=== PATIENT | male | born 1995 | race Caucasian/White ===

== ENCOUNTER 2025-02-08 10:30 | Emergency (ER) | payer OTHER, SELFPAY ==
[2025-02-08] VITALS (10 sets, daily range): BP systolic 95–118; BP diastolic 66–76; PULSE 53–87; RESP 17–20; TEMP 36.7; O2SAT 98–100
--- NOTE | ~2025-02-08 | CT_ITS ---
EXAMINATION: CT BRAIN W/O DATE: 02/08/2025 11:29 INDICATION: Seizures TECHNIQUE: Computed tomography (CT) of the head was performed without intravenous contrast. The dose- length product was 681.00 mGy-cm. Automated exposure control and iterative reconstruction technique were employed. COMPARISON: No prior studies for comparison. FINDINGS: Normal brain parenchymal volume for age. Normal hare-white differentiation. No acute intrac ranial hemorrhage, infarction, mass or mass effect. No ventriculomegaly or midline shift. Midline sagittal images demonstrate a normal corpus callosum, c raniovertebral junction and sella turcica. Basilar cisterns are patent. Paranasal sinuses and mastoids are pneumatized. No depressed skull fractures. IMPRESSION: 1. No acute intracranial abnormality. Reviewed, dictated and finalized at location B.
--- NOTE | ~2025-02-08 | US_ITS ---
US abdomen limited DATE: 02/08/2025 14:00 INDICATION: Abdominal pain TECHNIQUE: Real-time and color flow imaging COMPARISON: 02/08/2025 CT abdomen pelvis FINDINGS: There is minimal pericholecystic fluid. Borderline color wall thickness.: No gallstones are noted. Acalculous cholecystitis is not excluded. Clinical correlation is advised. Radionuclide hepat obiliary scan may be helpful to exclude acute cholecystitis if clinically appropriate. Common bile duct measures 3.9 mm, normal. The liver and pancreas and right kidney are unremarkable. IMPRESSION: Borderline thickening of the gallbladder wall and mild pericholecystic fluid. No gallston es are noted. If there is clinical concern for acalculous cholecystitis, consider radionuclide hepatobiliary scan Reviewed, dictated and finalized at Location A. Reviewed, dictated and finalized at location A. IMPRESSION: Borderline thickening of the gallbladder wall and mild pericholecys tic fluid. No gallstones are noted. If there is clinical concern for acalculous cholecystitis, consider radionuclid e hepatobiliary scan
--- NOTE | ~2025-02-08 | CT_ITS ---
EXAMINATION: CT abdomen pelvis w con DATE: 02/08/2025 12:24 INDICATION: Abdomen pain TECHNIQUE: Computed tomography (CT) of the abdomen and pelvis was performed with 100 cc Omnipaque 350 intravenous contrast. The dose-length product was 254.77 mGy-cm. Automated exposure control and iter ative reconstruction technique were employed. COMPARISON: None. FINDINGS: Lung bases are unremarkable. Heart size normal. No significant pleural or pericardial effus ion. There is periportal edema. There is possible trace pericholecystic fluid. The liver is otherwise unremarkable. The spleen, pancreas, adrenal glands and kidneys are unremarkable. Nonobstructive maritza l gas pattern. There is dependent atelectasis. No acute osseous abnormality. IMPRESSION: 1. Contracted gallbladder with possible pericholecystic fluid. No definite gallstones. There is mild periportal edema. Consider correlation with limited abdominal ultrasound. Reviewed, dictated and finalized at location B. IMPRESSION: 1. Contracted gallbladder with possible pericholecystic fluid. No definite gall stones. There is mild periportal edema. Consider correlation with limited abdom inal ultrasound.
--- OUTSIDE RECORDS SUMMARY | 2025-02-08 10:34 | XMS_ITS | Clinical Summary ---
Author Organization [facility] [employer] Address [address] [place] [address] Care Team Providers Care Cloth Reeler Name Role Phone Jacinta Webb MD Unavailable Source Comments [facility] [employer],non-owned Affiliates and Associated Physician Practices is amultiple site organization consisting of ambulatory clinics and hospital sitesin [place], [place], [place] and [place]. This disclosure is being madepursuant to the Care Everywhere program and may not contain all information available regarding this patient. Last updated 18.[facility] [employer] Allergies No known active allergies Medications * Be aware that medications may not be up to date on this document. Alwaysverify current medications with the patient. Medication Sig Dispensed Refills Start Date End Date Status adapalene-benzoyl peroxide (EPIDUO) 0.1-2.5 % gel Apply to affected area at bedtime. 1 Tube 3 01/28/2011 Active Immunizations Name Administration Dates Next Due DPT 11/17/1997, 5,04/06/1994,02/07/1994,12/15/18 94 HEP A PEDS 2 DOSE 04/07/2008,06/20/2007 HEP B VACCINE, PED/ADOL 08/08/1994,1993, HIB BOOSTER 01/18/1995,04/06/1994,02/07/1994 ,1993 MMR 11/17/1997,01/18/1995 POLIO OPV 01/12/1999, 7,05/17/1995,02/07/1994,12/15/18 94 PPD 07/12/1999 TDAP (7yrs+) 06/20/2007 VARICELLA 04/07/2008,01/12/1999 Family History Medical History Relation Name Comments Diabetes Father Hypertension Father Anemia Mother Rashes/Skin Problems Mother Relation Name Status Comments Father Mother Social History Tobacco Use Types Packs/Day Years Used Date Smoking Tobacco: Never Assessed Sex and Gender Information Value Date Recorded Sex Assigned at Not on file Gender Identity Not on file Sexual Orientation Not on file Last Filed Vital Signs Vital Sign Reading Time Taken Comments Blood Pressure - - Pulse - - Temperature 37.4 C (99.4 F) 10/27/2011 3:48 PM SPECIAL EFFECTS TECHNICIAN Respiratory Rate - - Oxygen Saturation - - Inhaled Oxygen Concentration - - Weight 67 kg (147 lb 12.8 oz) 10/27/2011 3:48 PM SPECIAL EFFECTS TECHNICIAN Height - - Body Mass Index - - Plan of Treatment Health Maintenance Due Date Last Done Comments HIV SCREENING 2008 HEPATITIS C SCREENING 10/14/2011 DTAP/TDAP/TD VACCINES (7 - Td or Tdap) 06/20/2017 06/20/2007, 11/17/1997, 05/17/1995, Additional history exists COVID-19 VACCINE ( season) 2024 INFLUENZA VACCINE (#1) 2024 DEPRESSION SCREENING 11/20/2024 ZOSTER VACCINE (1 of 2) 2043 HEPATITIS B VACCINE Completed 08/08/1994, 1993, 1993 HIB VACCINE Completed 01/18/1995, 03/20, 02/07/1994, Additional history exists HPV VACCINE Aged Out No longer eligi ble based on patient's age to complete this topic MENINGOCOCCAL (Group B) VACCINE SHARED DECISION-MAKING Aged Out No longer eligible based on patient's age to complete this topic MENINGOCOCCAL GROUPS A/C/Y/W VACCINE Aged Out No longer eligible based on patient's age to complete this topic PNEUMOCOCCAL VACCINE Aged Out No long er eligible based on patient's age to complete this topic Care Teams Cloth Reeler Relationship Specialty Start Date End Date Jacinta Webb MD PCP - Pediatrics 12/17/09
--- NOTE | 2025-02-08 10:37 | ECG_ITS ---
Test Date: 2025-02-08 10:49:51 Measurements Intervals [place] Rate: 51 P: 57 CA: 187 QRS: 62 QRSD: 104 T: 50 QT: 446 QTc: 414 Interpretive Statements SINUS BRADYCARDIA INCOMPLETE RIGHT BUNDLE BRANCH BLOCK No previous ECG available for comparison Electronically Signed On 02-08-2025 17:37:53 CDT by Marcel David M.D.
[2025-02-08 10:49] LABS: Basophils Absolute Auto 0.1 K/mm3 (0.0-0.1); Basophils Percent Auto 0.7 % (0.2-1.2); Eosinophils Absolute Auto 0.5 K/mm3 (0-0.3); Eosinophils Percent Auto 4.2 % (0-4.4); Hematocrit 41.9 % (42.0-52.0); Immature Granulocyte Absolute 0.05 K/mm3 (0.00-0.031); Immature Granulocyte Percent A 0.4 % (0-0.5); Lymphocytes Absolute Auto 5.96 K/mm3 (0.9-3.2); Lymphocytes Percent Auto 48.9 % (18.3-44.2); Mean Corpuscular HGB Conc 33.4 g/dl (32-36); Mean Corpuscular Hemoglobin 29.5 pg (26-34); Mean Corpuscular Volume 88.4 fl (80-100); Mean Platelet Volume 10.5 fl (7.4-10.4); Monocytes Absolute Auto 0.8 K/mm3 (0.1-0.6); Monocytes Percent Auto 6.7 % (2.6-8.5); Neutrophils Absolute Auto 4.8 K/mm3 (1.3-6.7); Neutrophils Percent Auto 39.1 % (45.5-73.1); Platelet Count Result 194 k/mm3 (150-375); Red Blood Count 4.74 M/mm3 (4.6-6.20); Red Cell Distribution Width 13.1 % (11.5-14.5); White Blood Count 12.2 K/mm3 (4.5-10.0)
--- NOTE | 2025-02-08 10:53 | ED_ITS ---
HPI - General Adult General Chief complaint: Seizure Stated complaint: 2x seizures this morning Time Seen by Provider: 02/08/25 10:37 History of Present Illness HPI narrative: 29-year-old male presents emergency department for evaluation after having multiple syncopal episodes this morning. Patient states he did develop some abdominal cramping. Patient was sitting on the toilet felt lightheaded and dizzy and did fall to the ground. Patient and had 2 episodes near syncope. Patient has no prior seizure history. Patient does have history of disability due to back pain from the . Patient does use medical marijuana did use medical marijuana this morning. Related Data Home Medications ?Medication ?Instructions ?Recorded ?Confirmed ?Last Taken ?Type No Home Medications 02/08/25 02/08/25 Unknown History Allergies Allergy/AdvReac Type Severity Reaction Status Date / Time No Known Allergies Allergy Verified 02/08/25 11:31 Review of Systems 2 Review of Systems: All systems reviewed & are unremarkable except as noted in HPI and below Exam 2 Narrative: APPEARANCE: Cachectic and ill-appearing HEAD: normocephalic, atraumatic. EYES: PERRLA/EOMI, conjunctivae clear. NOSE: Normal no drainage EARS:TMS clear with good light reflex. THROAT: Pharynx clear, no exudate. NECK: Supple. No adenopathy, no masses. RESPIRATORY: Airway patent, respirations nonlabored. Clear to auscultation bilaterally, no rales, rhonchi, wheezing. CARDIOVASCULAR: Regular rate and rhythm without murmurs rubs or gallops. ABDOMINAL: Soft, nontender, nondistended, normal bowel sounds MUSCULOSKELETAL: Moves all extremities. Strength/ROM intact, No edema, No calf tenderness. NEURO: Alert. Cranial nerves II through XII intact. Grossly intact SKIN: Warm, dry. Normal Color Course Vital Signs Vital signs: Vital Signs Temperature 98.0 F 02/08/25 10:36 Pulse Rate 58 L 02/08/25 10:36 Respiratory Rate 20 02/08/25 10:36 Blood Pressure 106/70 02/08/25 10:36 Pulse Oximetry 100 02/08/25 10:36 Oxygen Delivery Room Air 02/08/25 10:36 Temperature 98.0 F 02/08/25 10:36 Pulse Rate 61 02/08/25 16:29 Respiratory Rate 18 02/08/25 16:29 Blood Pressure 109/75 02/08/25 16:29 Pulse Oximetry 98 02/08/25 16:29 Oxygen Delivery Room Air 02/08/25 10:36 Medical Decision Making [facility] Narrative Medical decision making narrative: 29-year-old male present to the emergency department for evaluation for to syncopal episodes. Patient is currently afebrile but does have a leukocytosis of 12.2 and a stable hemoglobin of 14.0. Patient's INR is 1.0. No significant acute abnormalities on the patient's CMP. No elevation in T bili AST ALT or alk-phos. Patient's TSH was elevated but patient has normal T3 and T4. UA was negative for infection. Patient was positive for cannabinoids but otherwise negative on the drug strain. Head CT showed no acute intracranial abnormality. CT abdomen pelvis showed contracted gallbladder with possible pericholecystic fluid. No definite gallstones. Ultrasound was recommended. Ultrasound showed borderline thickening of the gallbladder wall and mild pericholecystic fluid. No gallstones are noted. Low concern for any gallbladder pathology at this time. Patient family updated the results of the workup. Patient was able to ambulate at baseline with no lightheaded dizziness. Patient reports his abdominal pain is improved. Patient was treated with 2 L lactated Ringer's and has been making adequate urine production. Differential Diagnosis Differential Diagnosis: COVID, RSV, influenza, dehydration, orthostatic hypotension, cholecystitis, colitis, diverticulitis Vital Signs Vital Signs: Vital Signs Temperature 98.0 F 02/08/25 10:36 Pulse Rate 58 L 02/08/25 10:36 Respiratory Rate 20 02/08/25 10:36 Blood Pressure 106/70 02/08/25 10:36 Pulse Oximetry 100 02/08/25 10:36 Oxygen Delivery Room Air 02/08/25 10:36 Temperature 98.0 F 02/08/25 10:36 Pulse Rate 61 02/08/25 16:29 Respiratory Rate 18 02/08/25 16:29 Blood Pressure 109/75 02/08/25 16:29 Pulse Oximetry 98 02/08/25 16:29 Oxygen Delivery Room Air 02/08/25 10:36 Lab Data Lab results reviewed: Yes I reviewed the patient's lab results. 02/08/25 10:42 02/08/25 10:42 Labs: Lab Results 02/08/25 02/08/25 02/08/25 Range/Units 10:42 12:08 13:11 WBC 12.2 H (4.5-10.0) K/mm3 RBC 4.74 (4.6-6.20) M/mm3 Hgb 14.0 (14.0-18.0) g/dL Hct 41.9 L (42.0-52.0) % MCV 88.4 (80-100) fl MCH 29.5 (26-34) pg MCHC 33.4 (32-36) g/dl RDW 13.1 (11.5-14.5) % Plt Count 194 (150-375) k/mm3 MPV 10.5 H (7.4-10.4) fl Immature Gran % (Auto) 0.4 (0-0.5) % Neut % (Auto) 39.1 L (45.5-73.1) % Lymph % (Auto) 48.9 H (18.3-44.2) % [place] % (Auto) 6.7 (2.6-8.5) % Eos % (Auto) 4.2 (0-4.4) % Baso % (Auto) 0.7 (0.2-1.2) % Lymph # (Auto) 5.96 H (0.9-3.2) K/mm3 [place] # (Auto) 0.8 H (0.1-0.6) K/mm3 Eos # (Auto) 0.5 H (0-0.3) K/mm3 Baso # (Auto) 0.1 (0.0-0.1) K/mm3 Abs Immat Gran (auto) 0.05 H (0.00-0.031) K/mm3 Absolute Neuts (auto) 4.8 (1.3-6.7) K/mm3 Absolute Nucleated RBC 0.000 (0.0-0.012) K/mm3 Nucleated RBC % 0.0 (0.0-0.2) % PT 13.4 (11.1-14.7) Seconds INR 1.0 APTT 23.1 (22.3-36.8) Seconds Sodium 140 (137-145) mmol/L Potassium 3.2 L (3.4-5.0) mmol/L Chloride 104 (98-107) mmol/L Carbon Dioxide 25 (22-30) mmol/L Anion Gap 11 (4-12) mmol/L BUN 16 (9-20) mg/dL Creatinine 0.93 (0.7-1.3) mg/dL Estim Creat Clear Calc 101 ml/min Estimated GFR > 60 (59 - ) Glucose 131 H (65-110) mg/dL Lactic Acid 2.1 H 1.3 (0.7-2.0) mmol/L Calcium 9.0 (8.4-10.2) mg/dL Magnesium 1.8 (1.6-2.3) mg/dL Total Bilirubin 0.5 (0.2-1.3) mg/dL AST 27 (17-59) U/L ALT 24 (6-50) U/L Alkaline Phosphatase 66 (38-126) U/L Total Protein 7.0 (6.3-8.2) g/dL Albumin 4.5 (3.5-5.1) g/dL TSH (Reflex) 7.150 H (0.465-4.68) uIU/mL Free T4 1.11 (0.78-2.19) ng/dL Total T3 1.32 (0.97-1.69) NG/ML Urine Color Yellow (Yellow) Urine Appearance Cloudy H (Clear) Urine pH 5.5 (5.0-9.0) Ur Specific [place] 1.017 (1.001-1.035) Urine Protein Negative (Negative) mg/dL Urine Glucose (UA) Negative (Negative) mg/dL Urine Ketones Negative (Negative) mg/dL Ur Blood (Man) Negative (Negative) Urine Nitrate Negative (Negative) Urine Bilirubin Negative (Negative) Urine Urobilinogen 0.2 (<2.0) mg/dL Leukocyte Esterase Rfl Negative (Negative) PEEWEE/UL Urine RBC 0-2 (0-2) /hpf Urine WBC 0-5 (0-3) /hpf Ur Squamous Epith Cells None seen (Few) /hpf Urine Bacteria None seen /hpf Urine Casts 3-5 Urine Opiates Screen Negative (Negative) Urine Methadone Screen Negative (Negative) Ur Barbiturates Screen Negative (Negative) Ur Phencyclidine Scrn Negative (Negative) Ur Amphetamine Screen Negative (Negative) U Benzodiazepines Scrn Negative (Negative) Urine Cocaine Screen Negative (Negative) U Cannabinoids Screen Positive A (Negative) Ethyl Alcohol < 10 (<10) mg/dL Imaging Data Radiologist's impression: Impressions Head CT 02/08/25 11:30 IMPRESSION: 1. No acute intracranial abnormality. Abdomen/Pelvis CT 02/08/25 12:45 IMPRESSION: 1. Contracted gallbladder with possible pericholecystic fluid. No definite gallstones. There is mild periportal edema. Consider correlation with limited abdominal ultrasound. Abdomen Ultrasound 02/08/25 15:19 IMPRESSION: Borderline thickening of the gallbladder wall and mild pericholecystic fluid. No gallstones are noted. If there is clinical concern for acalculous cholecystitis, consider radionuclide hepatobiliary scan Discharge Plan Discharge Clinical Impression: Syncope and collapse Patient Disposition: Home, Self-Care Condition: Stable Instructions: Antibiotic Form, Clear Liquid Diet (ED), Syncope (DC) Additional Instructions: Drink plenty of fluids. If you are having a decreased appetite then stick with a clear liquid diet. Have close follow-up with your primary care physician. If you have any worsening symptoms then please call or return to the emergency department. Patient Language: Pashto Prescriptions: No Action No Home Medications Follow-up/Referrals: PHYSICIAN NOT ON STAFF,NONSTAFF [Primary Care Provider] -
[2025-02-08] MEDS: LACTATED RINGERS 2,000 ML 999 ML IV CONT (10:56)
[2025-02-08 10:59] LABS: Alanine Aminotransferase 24 U/L (6-50); Albumin Level 4.5 g/dL (3.5-5.1); Alkaline Phosphatase 66 U/L (38-126); Anion Gap 11 mmol/L (4-12); Aspartate Amino Transferase 27 U/L (17-59); Bilirubin,Total 0.5 mg/dL (0.2-1.3); Blood Urea Nitrogen 16 mg/dL (9-20); Carbon Dioxide 25 mmol/L (22-30); Chloride 104 mmol/L (98-107); Estimated CRCL calculation 101 ml/min; Estimated Glomerular Filt Rate > 60; Ethanol < 10 mg/dL (<10); Glucose 131 mg/dL (65-110); Lactic Acid Reflex 2.1 mmol/L (0.7-2.0); Magnesium 1.8 mg/dL (1.6-2.3); Potassium 3.2 mmol/L (3.4-5.0); Prothrombin Time 13.4 Seconds (11.1-14.7); Sodium 140 mmol/L (137-145)
[2025-02-08 11:00] LABS: Partial Thromboplastin Time 23.1 Seconds (22.3-36.8)
--- OUTSIDE RECORDS SUMMARY | 2025-02-08 11:05 | XMS_ITS | Clinical Summary ---
Author Organization [facility] [employer] Address [address] [place] [address] Care Team Providers Care Mailing Machine Operator Name Role Phone Jacinta Webb MD Unavailable [phone] Source Comments [facility],non-owned Affiliates and Associated Physician Practices is amultiple site organization consisting of ambulatory clinics and hospital sitesin [place], [place], [place] and [place]. This disclosure is being madepursuant to the Care Everywhere program and may not contain all information available regarding this patient. 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
--- OUTSIDE RECORDS SUMMARY | 2025-02-08 11:05 | XMS_ITS | Encounter Summary ---
Author Name [facility] Address [address] [place] [address] Care Team Providers Care Oil Pipe Inspector Name Role Phone VITALIY GILBERT Primary Care Provider SIMONE Chavez Primary Care Provider Yumi ventura Selected Encounter This section includes the information on record at [place] for the Encounter. Date/Time Encounter Type Encounter Description Reason Provider Source Feb 21, 2024 09:00 AM SUICD BASED CLN [place] [facility] INDIV ICD-10-CM F54 Psych & behavrl factors assoc w disord or dis classd elswhr [facility] Encounter Template Text not used by [place] Assessments - Encounter Diagnoses This section includes the primary and secondary diagnoses documented for the Encounter. Date/Time Primary/Secondary Diagnosis Diagnosis Name Provider Source Feb 21, 2024 09:50 AM PRIMARY Psych & behavrl factors assoc w disord or dis classd elswhr [facility] Feb 21, 2024 09:50 AM SECONDARY Chronic pain syndrome [facility] Feb 21, 2024 09:50 AM SECONDARY Major depressive disorder, recurrent, mild [facility]JENNA [facility] Plan of Treatment: Future Appointments (+ 6 months) and Future Tests (+/- 45 days) The Plan of Treatment section includes future care activities for the patient from all [place] treatmentfacilities. This section includes future appointments and future orders which are active, pending or scheduled. Future Appointments This section includes appointments that were scheduled to occur 6 months from the date of the Encounter, up to a maximum of 20 appointments. The data comes from all [place] treatment facilities. Appointment Date/Time Appointment Type Appointme nt Facility Name Mar 06, 2024 09:00 AM AMBULATORY - MEDICINE [facility] Encounter Notes: All associated encounter notes This section contains the clinical notes associated to the Encounter. Date/Time Encounter Note(s) Provider Source Feb 21, 2024 08:56 AM PSYCHOLOGY INITIAL EVALUATION NOTE: LOCAL TITLE: PRIMARY CARE PSYCHOLOGY INITIAL NOTE [facility] STANDARD TITLE: PSYCHOLOGY INITIAL EVALUATION NOTE DATE OF NOTE: FEB 21, 2024@08:56 ENTRY DATE: FEB 21, 2024@08:56:50 AUTHOR: CHENG PEARSON COSIGNER: URGENCY: STATUS: COMPLETED PRIMARY CARE-[facility]AL HEALTH INTEGRATION ([facility]) FUNCTIONAL ASSESSMENT NAME: AMANDA SERRA DATE OF : Sep DIAGNOSIS BEING TREATED: Psychological and Behavioral Factors Associated with Disorders or Diseases classified elsewhere, chronic pain; r/o MDD, SC chronic adjustment disorder CPT Code: 47387 SERVICE CONNECTION: Service Connected: 100% Rated Disabilities: LIMITED MOTION OF ARM (20% SC) INTERVERTEBRAL DISC SYNDROME (30% SC) LIMITED FLEXION OF THIGH (10% SC) 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 PROCEDURES: Brief Behavioral Health Assessment. Informed about *limits to confidentiality - charting/consultation with medical team - actions for safety of self/dependents *duration and purpose of this appointment as well as the potential risk, benefits, and complications of participating in treatment. The [place] expressed understanding and consented to participate in services. Clinical Reminders are Due: No Urgency of need for care: [x] Routine [ ] Stat Appropriate setting for care: [x] Outpatient [ ] ER REASON FOR REFERRAL: referred to Primary Care Psychology for a brief behavioral health assessment to address issues related to: request for svcs- some depressed mood although screen negative Presenting Problem (Detail symptoms): [place] reporting: -depression, can't get anything done with medical conditions, caring for kids & family everything is falling behind -feel sick all the time -back pain & migraines get in way of completing tasks -guilt re: not getting things done for family Problem History (Duration/Frequency/Intensi ty): -Duration: ~1 yr; back pain worsening, kids more handful -Frequency: daily -Intensity: 7-8/10 Treatment History for Problem: -Psychotherapy: in childhood for family counseling -Medication: denied Factors that Improve/Exacerbate Problem, if applicable: -Improves: when I feel better, more finances -Exacerbates: financial stressors How Presenting Problem Impacts the Following: -Sleep: poor; pain gets in way; thoughts race -Work/School: unemployed, not looking for work currently, also unemployed, not looking for work -Relationships/Interpersona l: strong social supports; & 2 kids (6yo & 3yo); -Leisure/Recreation: time with kids; milad with friends, time with family -Physical/Medical/Pain: see above -Social media usage: Denied -ETOH/Illicit Substance Use/Tobacco/Caffeine: ETOH: denied Tobacco: denied Drugs: MJ for sleep, manage migraine and pain Caffeine: coffee 8-16oz Symptom Measurements: Informed consent for [employer]: Sent self-report measures to vet via text or email through [employer] application. Discussed measurement-based care (MBC) and self-monitoring with the [place]. Oriented the [place] to completing MBC through [employer]. Reminded the [place] that the responses are not reviewed in real time and encouraged them to contact this provider or the care team directly with any concerns or questions. Reviewed potential risks (e.g., privacy concerns)and benefits (e.g., ease and convenience). Reviewed clear guidelines on what actions the [place] should take if experiencing an acute MH crisis (i.e., contact the Veterans Crisis Line (VCL), call 911, go to the nearest emergency room, etc.). [place] consents to use the of the [employer] application consistent with the agreed upon parameters (e.g., not to be used for urgent communications). Symptom Measurements: sent via [employer] but not completed at time of note writing. Will add if/when completes. PHQ9 (Depression): (RANGES: 0-4 Minimal; 5-9 Mild; 10-14 Moderate; 15-19 Moderately severe; 20-27 Severe) GAD7 (Anxiety): (RANGES: 0-4 Minimal; 5-9 Mild; 10-14 Moderate; 15-21 Severe) LETHALITY ASSESSMENT -Are you having thoughts of harming yourself or others? No -Any history of suicide attempts: No CSSRS: FEB 21, 2024[x]negative [ ]positive -Risk Factors: NA -Protective Factors: help-seeking, future-oriented, strong supports, fatherhood, , absence of SI, intent, or plan, no history of SI, suicide attempts, or self-harm behavior. -Risk level: [x]LOW [ ]MODERATE [ ]HIGH -CLINICAL JUDGMENT AND DISPOSITION: In consideration of relevant risk and protective factors, the did NOT appear to be at imminent risk for suicide or homicide at this time and IS sustainable at the current level of care. -Comments: -Any history of violence: No -Any current HI or aggressive urges: -Any current concerns related to abuse, neglect, exploitation, and interpersonal violence: MENTAL STATUS: [x] Within normal limits [x] Other: blunted affect ASSIST PHASE: [place] was provided with tools for self-management including: [x] Handouts on: -IPR brochure -Anxiety, provided by [employer] website -Chronic pain, provided by [employer] website -Depression, provided by [employer] website [x] Education regarding: -Impact of poor sleep on stress and mood -Characteristics of depression, eliciting examples from 's own life -Characteristics of anxiety, eliciting examples from 's own life -Discussed biopsychosocial model of chronic pain [x] Other: -Provided empathy, reflective listening, and supportive therapy throughout session. -Encouraged continued use of known coping skills. -Normalized current concerns, thoughts, and emotions. -Focused on assets/strengths. GOALS FOR [place]: The following goals were developed using shared decision-making with input by the [place]: -Behavioral activation ( do what I need to do ) (evidenced by MBC and self- report) IMPRESSIONS: reported symptoms aligning with depression and psychological factors r/t chronic pain. They are agreeable to engaging in [facility] at this time to work on behavioral activation. PLAN OF CARE: The following plan was developed collaboratively with the [place] and he/she provided verbal consent to participate in the treatment plan below. [x] Continue Care within [facility]. Behavioral Health Lab Monitoring 2 weeks. RTC in 2 weeks RECOMMENDATONS FOR PCP: Continue care as needed. Outcome and recommendations will be discussed with the referring provider and other relevant PACT team members as needed. EDUCATION: [place] was provided with opportunity to address any questions or concerns. The was provided with written contact information. The is aware of the Suicide Prevention Hotline number ( ) in case of crisis. If experiencing a mental health emergency, the should present to nearest emergency room or call 911 immediately. /jossue/ Jenna Lopez, PhD Psychologist, [facility] Signed: 02/21/2024 09:50 JENNA PEARSON [facility]
--- OUTSIDE RECORDS SUMMARY | 2025-02-08 11:05 | XMS_ITS | Encounter Summary ---
Author Name [facility] Address [address] [place] [address] Care Team Providers Care Manager Learning Name Role Phone VITALIY GILBERT Primary Care Provider SIMONE Chavez Primary Care Provider Yumi ventura Selected Encounter This section includes the information on record at [place] for the Encounter. Date/Time Encounter Type Encounter Description Reason Provider Source Mar 06, 2024 09:00 AM PSYTX W PT 30 MINUTES [facility] INDIV ICD-10-CM F54 Psych & behavrl factors assoc w disord or dis classd elsJENNA Magallon Stuart Encounter Template Text not used by [place] Assessments - Encounter Diagnoses This section includes the primary and secondary diagnoses documented for the Encounter. Date/Time Primary/Secondary Diagnosis Diagnosis Name Provider Source Mar 06, 2024 09:32 AM PRIMARY Psych & behavrl factors assoc w disord or dis classd elschelsear ARIA-JENNA WARNER [facility] Encounter Notes: All associated encounter notes This section contains the clinical notes associated to the Encounter. Date/Time Encounter Note(s) Provider Source Mar 06, 2024 09:07 AM PSYCHOLOGY OUTPATI ENT NOTE: LOCAL TITLE: PRIMARY CARE PSYCHOLOGY NOTE [facility] STANDARD TITLE: PSYCHOLOGY OUTPATIENT NOTE DATE OF NOTE: MAR 06, 2024@09:07 ENTRY DATE: MAR 06, 2024@09:07:22 AUTHOR: CHENG PEARSON COSIGNER: URGENCY: STATUS: COMPLETED NAME: SUKHWINDER SERRA DATE OF : Sep TIME SPENT WITH PATIENT: 30 minutes DIAGNOSIS BEING TREATED: Psychological and Behavioral Factors Associated with Disorders or Diseases classified elsewhere, chronic pain; r/o MDD, [place] chronic adjustment disorder CPT Code: 37087 NATURE OF ENCOUNTER: final visit SESSION FORMAT: [x] Video Telehealth [ ]Phone Ch[place]'s location and phone number confirmed for virtual appointment. PROCEDURES: Brief Behavioral Health Assessment. Informed about *limits to confidentiality - charting/consultation with medical team - actions for safety of self/dependents *duration and purpose of this appointment as well as the potential risk, benefits, and complications of participating in treatment. The [place] expressed understanding and consented to participate in services. SESSION NUMBER: 2 INTERVENTION/TREATMENT PROVIDED [x] [place] [x] Shared decision-making regarding goals of care [x] Supportive Psychotherapy [ ] Solution-Focused Psychotherapy [ ] Insight Oriented Psychotherapy [ ] Cognitive Behavioral Therapy Skills [ ] Acceptance and Commitment Therapy Skills [ ] Interpersonal Therapy Skills [ ] Motivational Interviewing [ ] Culture-based Interventions [ ] Health Psychology Interventions [ ] Evidence Based Psychotherapy: [ ] Psychosocial Interventions [ ] Other: Description of Interventions Provided by Therapist: -Reviewed hand outs provided last session -Reviewed priorities -Reviewed goals set at last session, discussing challenges and success and encouraged continual engagement toward goals and values. -Provided empathy, reflective listening, and supportive therapy throughout session. -Encouraged continued use of known coping skills. -Normalized current concerns, thoughts, and emotions. -Focused on assets/strengths. RELEVANT HISTORICAL DEVELOPMENTS SINCE LAST CONTACT: NOTE: Describe relevant historical developments below reported prioritizing physical interventions for chronic pain at this time, was agreeable to today being final session of [facility]. He declined IPR referral at this time. He is aware he can reconnect at anytime if possible. ASSESSMENT MEASURES USED: Symptom Measurements: sent via [employer] touch but not completed at time of note writing. Will add if/when completes. [X]Functional/Symptom Assessment: Symptom(s)/Function(s) tracked by changes in frequency, intensity or duration since last visit: SX: Sleep: no concerns stated in today's session Interest: no concerns stated in today's session Guilt: no concerns stated in today's session Energy: no concerns stated in today's session Concentration: no concerns stated in today's session Appetite: no concerns stated in today's session Psychomotor: no concerns stated in today's session Collaboratively discussed outcomes related to assessment and treatment progress and measures will continue to be monitored. MEASURABLE TREATMENT GOALS FOR THIS EPISODE OF CARE: Goals were developed with using shared decision making 1. GOAL/OBJECTIVES: reported prioritizing physical interventions over [facility] services at this time. RESPONSE TO INTERVENTIONS: Veterans participation/engagement: [x]The [place] participated actively in the current interventions. [ ]Other: The continues to consent to the current plan of care: Yes Comments: RISK ASSESSMENT: [x] NO CHANGE IN RISK FACTORS Related to Suicide or Homicide. did not report any current suicidal/homicidal ideation, plan, or intent. Ch[place] did not appear to be at imminent risk for suicide or homicide at this time and is considered sustainable at the current level of care. -CLINICAL JUDGMENT AND DISPOSITION: [x] In consideration of relevant risk and protective factors, the did NOT appear to be at imminent risk for suicide or homicide at this time and IS sustainable at the current level of care. COLLABORATIVE RECOMMENDATIONS/PLAN: Collaboratively discussed outcomes related to assessment and treatment progress. Based on this discussion: [x] agreeable to today being final session per prioritizing physical interventions at this time. He is aware he can reconnect at anytime in the future if necessary. /jossue/ Jenna Lopez, PhD Psychologist, [facility] Signed: 03/06/2024 09:33 [facility]
--- OUTSIDE RECORDS SUMMARY | 2025-02-08 11:05 | XMS_ITS | Continuity of Care Document ---
Author Name [facility] Organization [facility] Care Team Providers Care Mattress Inspector Name Role Phone [facility] Unavailable Unavailable Problems Combined list of problems from Department of [facility] ([place], [place]) and [facility] facilities. It does not include entries that were removed or entered in error. Problem Status Onset Date Problem Type Date of Resolution Comments Source Exposure to potentially hazardous substance Active Condition [facility] FH: premature coronary heart disease Active Condition [facility] Low back pain Active Condition [facility] Migraine Active Condition [facility] Neck pain Active Condition [facility] Spasm of back muscles Active Condition [facility] Tinnitus Active Condition [facility] Traumatic brain injury Active Condition [facility] Diagnosis: ICD-10-CM F54 Psych & behavrl factors assoc w disord or dis classd elswhr Active Diagnosis [facility] Diagnosis: ICD-10-CM Z02.89 Encounter for other administrative examinations Active Diagnosis [facility] Diagnosis: ICD-10-CM Z55.9 Problems related to education and literacy, unspecified Active Diagnosis [facility] Diagnosis: ICD-10-CM Z59.48 Other specified lack of adequate food Active Diagnosis [facility] Diagnosis: ICD-10-CM M54.50 Low back pain, unspecified Active Diagnosis [facility] Immunizations Combined list of available immunizations from the Department of Defense and [facility] facilities. Immunization Series Date Given Administered By Site Reaction Lot Number CVX Code Drug Cue Selector Status Comments Source COVID-19 (MODERNA), MRNA, LNP-S, PF, 50 MCG/0.5 ML (AGES 12+ YEARS) 1 2023 KISHAN BASS LEFT DELTO ID [id number] complet ed [facility] INFLUENZA, INJECTABLE, QUADRIVALENT, PRESERVATIVE FREE 2023 KISHAN BASS RIGHT DELTO ID [id number] 150 complet ed [facility] TDAP 2023 KISHAN BASS RIGHT DELTO ID [id number] 115 complet ed [facility] HPV9 1 2018 165 complet ed [facility] INFLUENZA, SEASONAL, INJECTABLE 2018 141 complet ed [employer] [facility] TDAP 2012 115 complet ed Per [facility] [employer] Results Combined list of recent chemistry, hematology and other laboratory results from Department of Defense and Veterans Affairs, ranging from 15 months to all on record, depending upon the facility. Order Name Results Value Reference Range Date Interpretation Specimen Comments Source HGA1C HEMOGLOBIN A1C/HEMOGLOB IN.TOTAL IN BLOOD 5.5 4.0 - 6.0 08/04 Specimen Type: BLOOD No comment entered. Ordering Provider: MET KIRTI GIRARD Report Released Date/Time: Jul 26, 2023 02:15 PM Reporting Lab: [facility] [address] [place] [phone] Performing Lab: [facility] [address] [place] [phone] [facility] TSH (MA-PB-STL) THYROTROPIN [UNITS/VOLUM E] IN SERUM OR PLASMA 2.060 u[IU]/ mL 0.47 - 5 08/04 Specimen Type: SERUM No comment entered. Ordering Provider: MET KIRTI GIRARD Report Released Date/Time: Jul 26, 2023 02:15 PM Reporting Lab: [facility] [address] [place] [phone] Performing Lab: [facility] [address] [place] [phone] [facility] COMPREHENSI VE METABOLIC PANEL CREATININE [MASS/VOLUME ] IN SERUM OR PLASMA 0.86 mg/dL 0.7 - 1.3 08/04 Specimen Type: PLASMA Comment: No hemolysis noted. Ordering Provider: MET KIRTI GIRARD Report Released Date/Time: Jul 26, 2023 02:15 PM Reporting Lab: [facility] [address] [place] [phone] Performing Lab: [facility] [address] [facility] [phone] [facility] COMPREHENSI VE METABOLIC PANEL UREA NITROGEN [MASS/VOLUME ] IN SERUM OR PLASMA 15.2 mg/dL 9.0 - 25.0 08/04 Specimen Type: PLASMA Comment: No hemolysis noted. Ordering Provider: MET KIRTI GIRARD Report Released Date/Time: Jul 26, 2023 02:15 PM Reporting Lab: [facility] [address] [facility] [phone] Performing Lab: [facility] [address] [facility] [phone] [facility] COMPREHENSI VE METABOLIC PANEL GLUCOSE [MASS/VOLUME ] IN SERUM OR PLASMA 89 mg/dL 72 - 99 08/04 Specimen Type: PLASMA Comment: No hemolysis noted. Ordering Provider: MET KIRTI GIRARD Report Released Date/Time: Jul 26, 2023 02:15 PM Reporting Lab: [facility] [address] [facility] [phone] Performing Lab: [facility] [address] [place] [phone] [facility] COMPREHENSI VE METABOLIC PANEL SODIUM [MOLES/VOLUM E] IN SERUM OR PLASMA 140 meq/L 136 - 145 08/04 Specimen Type: PLASMA Comment: No hemolysis noted. Ordering Provider: MET KIRTI GIRARD Report Released Date/Time: Jul 26, 2023 02:15 PM Reporting Lab: [facility] [address] [facility] [phone] Performing Lab: [facility] [address] [place] [phone] [facility] COMPREHENSI VE METABOLIC PANEL POTASSIUM [MOLES/VOLUM E] IN SERUM OR PLASMA 4.2 meq/L 3.5 - 5 08/04 Specimen Type: PLASMA Comment: No hemolysis noted. Ordering Provider: MET KIRTI GIRARD Report Released Date/Time: Jul 26, 2023 02:15 PM Reporting Lab: [facility] [address] [facility] [address] Performing Lab: [facility] [address] [facility] [phone] [facility] COMPREHENSI VE METABOLIC PANEL CHLORIDE [MOLES/VOLUM E] IN SERUM OR PLASMA 103 meq/L 98 - 107 08/04 Specimen Type: PLASMA Comment: No hemolysis noted. Ordering Provider: MET KIRTI GIRARD Report Released Date/Time: Jul 26, 2023 02:15 PM Reporting Lab: [facility] [address] [facility] [address] Performing Lab: [address] [phone] [facility] COMPREHENSI VE METABOLIC PANEL CARBON DIOXIDE, TOTAL [MOLES/VOLUM E] IN SERUM OR PLASMA 27 meq/L 22 - 31 08/04 Specimen Type: PLASMA Comment: No hemolysis noted. Ordering Provider: MET KIRTI GIRARD Report Released Date/Time: Jul 26, 2023 02:15 PM Reporting Lab: [facility] [address] [facility] [phone] Performing Lab: [address] [phone] [facility] COMPREHENSI VE METABOLIC PANEL CALCIUM [MASS/VOLUME ] IN SERUM OR PLASMA 9.5 mg/dL 8.4 - 10.4 08/04 Specimen Type: PLASMA Comment: No hemolysis noted. Ordering Provider: MET KIRTI GIRARD Report Released Date/Time: Jul 26, 2023 02:15 PM Reporting Lab: [facility] [address] [place] [phone] Performing Lab: [address] [phone] [facility] COMPREHENSI VE METABOLIC PANEL PROTEIN [MASS/VOLUME ] IN SERUM OR PLASMA 7.3 g/dL 6 - 8.6 08/04 Specimen Type: PLASMA Comment: No hemolysis noted. Ordering Provider: MET KIRTI GIRARD Report Released Date/Time: Jul 26, 2023 02:15 PM Reporting Lab: [facility] [address] [place] [phone] Performing Lab: [facility] [address] [place] [phone] [place] [address] COMPREHENSI VE METABOLIC PANEL ALBUMIN [MASS/VOLUME ] IN SERUM OR PLASMA 4.7 g/dL 3.4 - 5 08/04 Specimen Type: PLASMA Comment: No hemolysis noted. Ordering Provider: MET KIRTI GIRARD Report Released Date/Time: Jul 26, 2023 02:15 PM Reporting Lab: [address] [phone] Performing Lab: [address] [phone] [place] [address] COMPREHENSI VE METABOLIC PANEL BILIRUBIN.TO SALVADOR [MASS/VOLUME ] IN SERUM OR PLASMA 0.3 mg/dL 0.2 - 1.2 08/04 Specimen Type: PLASMA Comment: No hemolysis noted. Ordering Provider: MET KIRTI GIRARD Report Released Date/Time: Jul 26, 2023 02:15 PM Reporting Lab: [facility] [address] [place] [phone] Performing Lab: [address] [phone] [place] [address] COMPREHENSI VE METABOLIC PANEL ALKALINE PHOSPHATASE [ENZYMATIC ACTIVITY/VOL UME] IN SERUM OR PLASMA 69 U/L 40 - 150 08/04 Specimen Type: PLASMA Comment: No hemolysis noted. Ordering Provider: MET KIRTI GIRARD Report Released Date/Time: Jul 26, 2023 02:15 PM Reporting Lab: [address] [phone] Performing Lab: [address] [phone] [facility] COMPREHENSI VE METABOLIC PANEL ASPARTATE AMINOTRANSFE RASE [ENZYMATIC ACTIVITY/VOL UME] IN SERUM OR PLASMA 23 U/L 5 - 34 08/04 Specimen Type: PLASMA Comment: No hemolysis noted. Ordering Provider: MET KIRTI GIRARD Report Released Date/Time: Jul 26, 2023 02:15 PM Reporting Lab: [facility] [address] [place] [phone] Performing Lab: [address] [phone] [place] [address] COMPREHENSI VE METABOLIC PANEL ALANINE AMINOTRANSFE RASE [ENZYMATIC ACTIVITY/VOL UME] IN SERUM OR PLASMA 15 U/L 8 - 40 08/04 Specimen Type: PLASMA Comment: No hemolysis noted. Ordering Provider: MET KIRTI GIRARD Report Released Date/Time: Jul 26, 2023 02:15 PM Reporting Lab: [address] [phone] Performing Lab: [place] [phone] [place] [address] COMPREHENSI VE METABOLIC PANEL GLOMERULAR FILTRATION RATE/1.73 SQ M.PREDICTED [VOLUME RATE/AREA] IN SERUM, PLASMA OR BLOOD BY CREATININE-B ASED FORMULA (CKD-EPI 2020) 120.2 60 08/04 Specimen Type: PLASMA Comment: No hemolysis noted. Ordering Provider: MET KIRTI GIRARD Report Released Date/Time: Jul 26, 2023 02:15 PM Reporting Lab: [facility] [address] [place] [phone] Performing Lab: [address] [phone] [place] [address] CBC LEUKOCYTES [#/VOLUME] IN BLOOD BY AUTOMATED COUNT 8.2 10*3/u L 3.6 - 11.2 08/04 Specimen Type: BLOOD No comment entered. Ordering Provider: MET KIRTI GIRARD Report Released Date/Time: Jul 26, 2023 02:15 PM Reporting Lab: [facility] [address] Performing Lab: [facility] CBC ERYTHROCYTES [#/VOLUME] IN BLOOD BY AUTOMATED COUNT 4.40 10*6/u L 4.10 - 5.70 08/04 Specimen Type: BLOOD No comment entered. Ordering Provider: MET KIRTI GIRARD Report Released Date/Time: Jul 26, 2023 02:15 PM Reporting Lab: [facility] [place] [address] Performing Lab: [facility] CBC HEMOGLOBIN [MASS/VOLUME ] IN BLOOD 13.2 g/dL 13.1 - 16.8 08/04 Specimen Type: BLOOD No comment entered. Ordering Provider: MET KIRTI GIRARD Report Released Date/Time: Jul 26, 2023 02:15 PM Reporting Lab: [facility] [place] [address] Performing Lab: [facility] CBC HEMATOCRIT [VOLUME FRACTION] OF BLOOD 39.3 38.2 - 48.4 08/04 Specimen Type: BLOOD No comment entered. Ordering Provider: MET KIRTI GIRARD Report Released Date/Time: Jul 26, 2023 02:15 PM Reporting Lab: [facility] [place] [address] Performing Lab: [facility] CBC MCV [ENTITIC VOLUME] BY AUTOMATED COUNT 89.3 fL 80.0 - 100.0 08/04 Specimen Type: BLOOD No comment entered. Ordering Provider: MET KIRTI GIRARD Report Released Date/Time: Jul 26, 2023 02:15 PM Reporting Lab: [facility] [place] [address] Performing Lab: [facility] CBC MCH [ENTITIC MASS] BY AUTOMATED COUNT 30.0 pg 27.0 - 34.0 08/04 Specimen Type: BLOOD No comment entered. Ordering Provider: MET KIRTI GIRARD Report Released Date/Time: Jul 26, 2023 02:15 PM Reporting Lab: [facility] [place] [address] Performing Lab: [facility] CBC MCHC [MASS/VOLUME ] BY AUTOMATED COUNT 33.6 g/dL 33.0 - 36.0 08/04 Specimen Type: BLOOD No comment entered. Ordering Provider: MET KIRTI GIRARD Report Released Date/Time: Jul 26, 2023 02:15 PM Reporting Lab: [facility] [place] [address] Performing Lab: [facility] CBC PLATELETS [#/VOLUME] IN BLOOD BY AUTOMATED COUNT 171 10*3/u L 150 - 400 08/04 Specimen Type: BLOOD No comment entered. Ordering Provider: MET KIRTI GIRARD Report Released Date/Time: Jul 26, 2023 02:15 PM Reporting Lab: [facility] [place] [address] Performing Lab: [facility] CBC PLATELET MEAN VOLUME [ENTITIC VOLUME] IN BLOOD BY AUTOMATED COUNT 11.5 fL 7.5 - 11.2 08/04 H Specimen Type: BLOOD No comment entered. Ordering Provider: MET KIRTI GIRARD Report Released Date/Time: Jul 26, 2023 02:15 PM Reporting Lab: [facility] [place] [address] Performing Lab: [facility] [place] [phone] [place] [address] CBC ERYTHROCYTE DISTRIBUTION WIDTH [RATIO] BY AUTOMATED COUNT 12.4 11.8 - 15.1 08/04 Specimen Type: BLOOD No comment entered. Ordering Provider: MET KIRTI GIRARD Report Released Date/Time: Jul 26, 2023 02:15 PM Reporting Lab: [facility] [place] [address] Performing Lab: [facility] CBC LYMPHOCYTES/ 100 LEUKOCYTES IN BLOOD BY AUTOMATED COUNT 34 08/04 Specimen Type: BLOOD No comment entered. Ordering Provider: MET KIRTI GIRARD Report Released Date/Time: Jul 26, 2023 02:15 PM Reporting Lab: [facility] [place] [address] Performing Lab: [facility] CBC MONOCYTES/10 0 LEUKOCYTES IN BLOOD BY AUTOMATED COUNT 6 08/04 Specimen Type: BLOOD No comment entered. Ordering Provider: MET KIRTI GIRARD Report Released Date/Time: Jul 26, 2023 02:15 PM Reporting Lab: [facility] [place] [address] Performing Lab: [facility] CBC NEUTROPHILS/ 100 LEUKOCYTES IN BLOOD BY AUTOMATED COUNT 54 08/04 Specimen Type: BLOOD No comment entered. Ordering Provider: MET KIRTI GIRARD Report Released Date/Time: Jul 26, 2023 02:15 PM Reporting Lab: [facility] [phone] Performing Lab: [facility] CBC EOSINOPHILS/ 100 LEUKOCYTES IN BLOOD BY AUTOMATED COUNT 5 08/04 Specimen Type: BLOOD No comment entered. Ordering Provider: MET KIRTI GIRARD Report Released Date/Time: Jul 26, 2023 02:15 PM Reporting Lab: [facility] [place] [address] Performing Lab: [facility] CBC BASOPHILS/10 0 LEUKOCYTES IN BLOOD BY AUTOMATED COUNT 1 08/04 Specimen Type: BLOOD No comment entered. Ordering Provider: MET KIRTI GIRARD Report Released Date/Time: Jul 26, 2023 02:15 PM Reporting Lab: [facility] [place] [address] Performing Lab: [facility] CBC LYMPHOCYTES [#/VOLUME] IN BLOOD BY AUTOMATED COUNT 2.76 10*3/u L 0.77 - 4.50 08/04 Specimen Type: BLOOD No comment entered. Ordering Provider: MET KIRTI GIRARD Report Released Date/Time: Jul 26, 2023 02:15 PM Reporting Lab: [facility] [place] [address] Performing Lab: [facility] CBC MONOCYTES [#/VOLUME] IN BLOOD BY AUTOMATED COUNT 0.48 10*3/u L 0.19 - 1.50 08/04 Specimen Type: BLOOD No comment entered. Ordering Provider: MET KIRTI GIRARD Report Released Date/Time: Jul 26, 2023 02:15 PM Reporting Lab: [facility] [place] [address] Performing Lab: [facility] CBC NEUTROPHILS [#/VOLUME] IN BLOOD BY AUTOMATED COUNT 4.41 10*3/u L 2.10 - 8.00 08/04 Specimen Type: BLOOD No comment entered. Ordering Provider: MET KIRTI GIRARD Report Released Date/Time: Jul 26, 2023 02:15 PM Reporting Lab: [facility] [place] [address] Performing Lab: [facility] CBC EOSINOPHILS [#/VOLUME] IN BLOOD BY AUTOMATED COUNT 0.41 10*3/u L 0.00 - 0.60 08/04 Specimen Type: BLOOD No comment entered. Ordering Provider: MET KIRTI GIRARD Report Released Date/Time: Jul 26, 2023 02:15 PM Reporting Lab: [facility] [place] [address] Performing Lab: [facility] CBC BASOPHILS [#/VOLUME] IN BLOOD BY AUTOMATED COUNT 0.07 10*3/u L 0.00 - 0.20 08/04 Specimen Type: BLOOD No comment entered. Ordering Provider: MET KIRTI GIRARD Report Released Date/Time: Jul 26, 2023 02:15 PM Reporting Lab: [facility] [place] [address] Performing Lab: [facility] Vital Signs Combined list of inpatient and outpatient Vital Signs from Department of Defense and Veterans Affairs, ranging from 12 months to all on record, depending upon the facility. Vital Sign Value Date Comments Source SYSTOLIC BLOOD PRESSURE 93 02/09/2024 09:30:56 [facility] DIASTOLIC BLOOD PRESSURE 59 02/09/2024 09:30:56 [facility] PULSE OXIMETRY 99 02/09/2024 09:30:56 [facility] WEIGHT 143 02/09/2024 09:30:56 [facility] BMI 20 kg/m2 02/09/2024 09:30:56 Caden Clemens [facility] PAIN 4 02/09/2024 09:30:56 Caden Clemens [facility] HEIGHT 71.5 02/09/2024 09:30:56 ST. Clemens [facility] TEMPERATURE 97.9 02/09/2024 09:30:56 [facility] PULSE 67 02/09/2024 09:30:56 Caden Clemens [facility] RESPIRATION 18 02/09/2024 09:30:56 [facility] Encounters Combined list of: 1) Encounters from Department of [facility] Affairs facilities going backup to the last 18 months, not all VA inpatient encounters are included; 2) Encounters from the Department of [facility] ([place], [place]) facilities going backup to 280 months. Location Location Details Encounter Type Encounter Number Reason For Visit Attending Provider ADM Date DC Date Status Disposition Source [facility] OFFICE O/P EST MOD 30 MIN [id number] Diagnos is: ICD-10- CM M54.50 Low back pain, unspeci fied ERA,MET KIRTI 02/[address] [facility] [id number] Diagnos is: ICD-10- CM Z59.48 Other specifi ed lack of adequat e food Nathaly ALSTON 02/08 [facility] Outpatient Encounter [id number] Diagnos is: ICD-10- CM Z55.9 Problem s related to educati on and literac y, unspeci fied COTY BRADSHAW 02/08 [facility] SUICIDE RISK ASSESSED [id number] Diagnos is: ICD-10- CM Z02.89 Encount er for other adminis trative examina tiGRAY Lou 02/[address] [facility] SUICD BASED CLN EVAL [id number] Diagnos is: ICD-10- CM F54 Psych and behavrl factors assoc w disord or dis classd gillian [facility] DavidsonL IE 02/[address] [facility] PSYTX W PT 30 MINUTES [id number] Diagnos is: ICD-10- CM F54 Psych and behavrl factors assoc w disord or dis classd tonisumit [facility] 03/06 [facility] Social History Combined list of available smoking, tobacco, and other social history from Department of Defense and Veterans Affairs facilities. Social History Type Response Date Comment Sourc e Tobacco smoking status NHIS [place]-TOBACCO QUIT 1 TO < 5 YRS 07/03/2023 [facility] History of tobacco use NJ-TOBACCO FORMER USER 07/03/2023 [facility] History of tobacco use NJ-TOBACCO NEVER USED 08/02/2019 [facility] Plan of Care List of future care activities from Department of Veterans Affairs facilities. Additional future care activities may be listed in the Assessment and Plan section. Date/Time Care Activity Care Activity Detail Facili ty 02/10/2025 AMBULATORY - MEDICINE AMBULATORY - MEDICI NE [facility]
--- NOTE | 2025-02-08 11:34 | PC.NURSE ---
patient asked for urine sample and is unable to urinate at this time, declines straight cath.
[2025-02-08 12:24] LABS: Add Urine Microscopic? YES; Appearance Urine Cloudy (Clear); Bacteria Urine None Seen /hpf; Bilirubin Urine Negative (Negative); Blood Urine Negative (Negative); Color Urine Yellow (Yellow); Glucose Urine UA Negative (Negative); Ketones Urine Negative (Negative); Leukocyte Esterase Ur Negative LEU/UL (Negative); Nitrate Urine Negative (Negative); Protein Urine Negative (Negative); RBC Urine 0-2 /hpf (0-2); Specific Grav Ur 1.017 (1.001-1.035); Squamous Epithelial Cell Urine None Seen /hpf (Few); Urobilinogen Urine 0.2 mg/dL (<2.0); WBC Urine 0-5 /hpf (0-3); pH Urine 5.5 (5.0-9.0)
[2025-02-08] MEDS: HYDROmorphone HCL INJ (*CRX) 1 MG/ML SYR IV PUSH (12:34)
[2025-02-08 12:35] LABS: Amphetamine Screen Urine Negative (Negative); Barbiturate Screen Urine Negative (Negative); Benzodiazepines Screen Urine Negative (Negative); Cannabinoid Screen Urine Positive (Negative); Cocaine Screen Urine Negative (Negative); Methadone Screen Urine Negative (Negative); Opiate Screen Urine Negative (Negative); Phencyclidine Screen Urine Negative (Negative)
[2025-02-08 12:46] LABS: Reflex Lactic Acid Yes or No Add Lactic
[2025-02-08 12:55] LABS: Free T4 Free Thyroxine Reflex 1.11 ng/dL (0.78-2.19)
[2025-02-08 13:27] LABS: Lactic Acid 1.3 mmol/L (0.7-2.0)
[2025-02-08 14:03] LABS: Total Triiodothyronine (T3) 1.32 NG/ML (0.97-1.69)
== END 2025-02-08 16:30 | disposition home or self-care (01) ==
PROVIDERS: Emergency Provider Emergency Medicine
DX: R55 Syncope and collapse (principal); R93.2 Abnormal findings on diagnostic imaging of liver and biliary tract
CPT/HCPCS: 36415; 70450; 74177; 76705; 80053; 80307; 81001; 82077; 83605; 83735; 84439; 84443; 84480; 85025; 85610; 85730; 93005; 96361; 96374; 99284; J1171; J7120; Q9967